=== PATIENT | male | born 1940 | race Caucasian/White ===

== ENCOUNTER 2017-09-26 07:49 | Day surgery (SDC) | payer OTHER, MEDICARE ==
[~2017-09-26] VITALS: Ht 185.4 cm; Wt 107.2 kg
[~2017-09-26 07:49] MED LIST: ASPI325 PO; GLIM2 PO; Lovastatin20 MG PO; METFORMIN HCL1000 MG PO; OMEPRAZOLE MAGN20 MG PO; Prinivil10 MG PO; TAMS.4ER PO
== END 2017-09-26 10:24 | disposition home or self-care (01) ==
LOC: ORSCSDS 07:49
PROVIDERS: Internal Medicine Gastroenterology
PROC: 0DBM8ZX Excision of Descending Colon, Via Natural or Artificial Opening Endoscopic, Diagnostic (ICD-10-PCS; principal; 2017-09-26 09:15)
PROC: 0DBK8ZX Excision of Ascending Colon, Via Natural or Artificial Opening Endoscopic, Diagnostic (ICD-10-PCS; principal; 2017-09-26 09:15)
PROC: 0DB58ZX Excision of Esophagus, Via Natural or Artificial Opening Endoscopic, Diagnostic (ICD-10-PCS; principal; 2017-09-26 09:15)
PROC: 0DB68ZX Excision of Stomach, Via Natural or Artificial Opening Endoscopic, Diagnostic (ICD-10-PCS; principal; 2017-09-26 09:15)
DX: K21.9 Gastro-esophageal reflux disease without esophagitis (principal); K22.70 Barrett's esophagus without dysplasia; K44.9 Diaphragmatic hernia without obstruction or gangrene; K51.20 Ulcerative (chronic) proctitis without complications; D12.2 Benign neoplasm of ascending colon; D12.4 Benign neoplasm of descending colon; K57.30 Diverticulosis of large intestine without perforation or abscess without bleeding; K64.8 Other hemorrhoids; E11.9 Type 2 diabetes mellitus without complications; I10 Essential (primary) hypertension; Z79.899 Other long term (current) drug therapy; F17.210 Nicotine dependence, cigarettes, uncomplicated
CPT/HCPCS: 82947; 88305; 88342; J7120

== ENCOUNTER → 2020-01-07 | Outpatient (CLI) | payer OTHER, MEDICARE | LOC: LAB SHORT 07:40 → PLD 07:40 | DX: L82.1 Other seborrheic keratosis (principal) | CPT/HCPCS: 88305 ==

== ENCOUNTER → 2020-02-17 | Outpatient (CLI) | payer OTHER, MEDICARE | END | disposition home or self-care (01) | LOC: LAB SHORT 14:38 → LAB EV 14:38 | PROVIDERS: Urology | DX: C61 Malignant neoplasm of prostate (principal) | CPT/HCPCS: 84153 ==

== ENCOUNTER → 2021-10-17 | Outpatient (CLI) | payer OTHER | LOC: LAB SHORT 17:00 | DX: M79.644 Pain in right finger(s) (principal) | CPT/HCPCS: 84550 ==

== ENCOUNTER 2023-04-16 14:35 | Emergency (ER) | payer OTHER ==
[~2023-04-16] VITALS: Ht 185.4 cm; Wt 95.2 kg
[2023-04-16 14:50] VITALS: BP 138/78
[2023-04-16] MEDS ORDERED: OMEP20ER (14:54)
== END 2023-04-16 14:56 | disposition home or self-care (01) ==
LOC: ER 14:35
DX: R09.89 Other specified symptoms and signs involving the circulatory and respiratory systems (principal); R07.0 Pain in throat; F17.200 Nicotine dependence, unspecified, uncomplicated; Z79.84 Long term (current) use of oral hypoglycemic drugs; Z79.82 Long term (current) use of aspirin; Z79.899 Other long term (current) drug therapy
CPT/HCPCS: 99283

== ENCOUNTER 2023-05-19 12:04 | Emergency (ER) | payer OTHER ==
[~2023-05-19] VITALS: Ht 185.4 cm; Wt 93.0 kg
[~2023-05-19 12:04] MED LIST changes: +OMEP20ER
[2023-05-19 12:16] VITALS: BP 107/81
== END 2023-05-19 13:00 | disposition home or self-care (01) ==
LOC: ER 12:04
DX: R09.A2 Foreign body sensation, throat (principal); F17.200 Nicotine dependence, unspecified, uncomplicated
CPT/HCPCS: 99283-25

== ENCOUNTER 2023-11-08 12:02 | Emergency (ER) | payer OTHER ==
[~2023-11-08] VITALS: Ht 185.4 cm; Wt 95.2 kg
[2023-11-08 12:22] VITALS: BP 111/68
== END 2023-11-08 13:15 | disposition home or self-care (01) ==
LOC: ER 12:02
DX: T18.128A Food in esophagus causing other injury, initial encounter (principal); Z79.84 Long term (current) use of oral hypoglycemic drugs; Z79.82 Long term (current) use of aspirin; Z79.899 Other long term (current) drug therapy
CPT/HCPCS: 99283

== ENCOUNTER 2024-07-02 18:01 | Emergency (ER) | payer OTHER ==
[~2024-07-02] VITALS: Ht 188 cm; Wt 117.9 kg
[2024-07-02 18:24] VITALS: BP 134/93
== END 2024-07-02 18:50 | disposition home or self-care (01) ==
LOC: ER 18:01
DX: G62.9 Polyneuropathy, unspecified (principal); E11.42 Type 2 diabetes mellitus with diabetic polyneuropathy; I10 Essential (primary) hypertension; E78.5 Hyperlipidemia, unspecified; F17.200 Nicotine dependence, unspecified, uncomplicated; Z87.828 Personal history of other (healed) physical injury and trauma; Z79.84 Long term (current) use of oral hypoglycemic drugs; Z79.82 Long term (current) use of aspirin
CPT/HCPCS: 99283